=== PATIENT | female | born 1995 | race Hispanic/Latino ===

== ENCOUNTER 2023-05-16 17:22 | Day surgery (SDC) | payer BC, SELFPAY ==
[2023-05-16 18:03] VITALS: BMI 32.3
[2023-05-16] MEDS ORDERED: hydrALAZINE 20 MG/ML VIAL SLOW IVP PRN (19:37)
== END 2023-05-16 19:24 | disposition home or self-care (01) ==
LOC: CSHLD/OP 17:22
PROVIDERS: ATTEND Family Medicine
DX: O47.1 False labor at or after 37 completed weeks of gestation (principal); Z3A.38 38 weeks gestation of pregnancy
CPT/HCPCS: 99283

== ENCOUNTER 2023-05-16 23:49 | Inpatient (IN) | payer BC, SELFPAY ==
[2023-05-17 00:19] VITALS: BMI 32.3
[2023-05-17] MEDS ORDERED: Misoprostol 200 MCG TAB PR PRN (00:38)
[2023-05-17] MEDS ORDERED: Ondansetron PF 4 MG/2 ML Vial IVP PRN ×3 (00:38→17:58)
[2023-05-17] MEDS ORDERED: Methylergonovine 0.2 MG/ML VIAL IM PRN (00:38)
[2023-05-17] MEDS ORDERED: hydrALAZINE 20 MG/ML VIAL SLOW IVP PRN ×2 (00:38→17:58)
[2023-05-17] MEDS ORDERED: Promethazine HCl 25 MG/ML VIAL IM PRN ×3 (00:38→17:58)
[2023-05-17] MEDS ORDERED: Lidocaine 1% (PF) 30 ML VIAL SC PRN (00:38)
[2023-05-17] MEDS ORDERED: Carboprost 250 MCG/ML AMP IM PRN (00:38)
[2023-05-17] MEDS ORDERED: Tranexamic Acid 1,000 MG/10 ML VIAL IVP PRN (00:38)
[2023-05-17] MEDS ORDERED: NS w/ Oxytocin 30 units 500 ML IV SCH ×2 (00:45)
[2023-05-17 01:33] LABS: Hemoglobin 12.1 g/dL (12.0-15.5); Mean Corpuscular HGB CONC 33.4 g/dL (32.0-36.0); Mean Corpuscular Hemoglobin 27.9 pg (27.0-33.0); Mean Corpuscular Volume 83.6 fl (81.6-98.3); Platelet Count 203 10x3/uL (150-450); RBC Distribution Width 22.5 % (11.5-14.5); Red Blood Cell (RBC) Count 4.33 10x6/uL (3.90-5.03); White Blood Cell (WBC) Count 9.1 10x3/uL (3.5-10.5)
[2023-05-17 01:47] LABS: HBSAg Index 0.15 S/CO (0-0.99); Hep B Surf Ag - L&D Non-Reactive S/CO (NonReactive); Syphilis Antibody Nonreactive (Nonreactive); Syphilis Antibody Index 0.03 S/CO (<1.00 Non-Reactive)
[2023-05-17] MEDS ORDERED: fentaNYL/Ropivacaine Epidural 100 ML ONE (09:29)
[2023-05-17] MEDS: Lactated Ringer's 1,000 ML IV SCH ×3 (09:57→18:09)
[2023-05-17] MEDS ORDERED: Moisturizing Cream (Eucerin) 113 GM JAR TOP PRN (10:17)
[2023-05-17] MEDS ORDERED: Naloxone HCl 0.4 mg/ml Vial IVP PRN ×2 (10:17)
[2023-05-17] MEDS ORDERED: Lactated Ringer's 500 ML IV PRN (10:17)
[2023-05-17] MEDS ORDERED: diphenhydrAMINE 50 MG/ML VIAL IVP PRN (10:17)
[2023-05-17] MEDS ORDERED: Acetaminophen 325 MG TAB PO PRN (10:17)
[2023-05-17] MEDS ORDERED: ePHEDrine Sulfate 50 MG/10 ML VIAL SLOW IVP PRN (10:17)
[2023-05-17] MEDS ORDERED: fentaNYL 2 mcg/Ropivacaine 0.2% Epidural 100 ML CADD EPIDURAL SCH (10:30)
[2023-05-17] MEDS ORDERED: Communication Order-Pharmacy FS SCH (10:30)
[2023-05-17] MEDS ORDERED: Ibuprofen 800 MG TAB PO SCH (15:15)
[2023-05-17] MEDS ORDERED: Diphenoxylate HCl/Atropine Tablet PO SCH (16:00)
[2023-05-17] MEDS ORDERED: Bisacodyl 10 MG SUPP PR PRN (17:58)
[2023-05-17] MEDS ORDERED: Boostrix 0.5 ML (Tdap) VIAL (>/=7 yrs of age) IM ONE (17:58)
[2023-05-17] MEDS ORDERED: diphenhydrAMINE 25 MG CAP PO PRN (17:58)
[2023-05-17] MEDS ORDERED: Milk Of Magnesia 30 ML UDCUP PO PRN (17:58)
[2023-05-17] MEDS ORDERED: Lanolin Ointment 7 GM TUBE TOP PRN (17:58)
[2023-05-17] MEDS ORDERED: Ferrous Sulfate 325 MG TAB PO SCH (18:15)
[2023-05-17] MEDS: HYDROcodone/Acetaminophen 5/325 mg Tablet PO PRN (19:15)
[2023-05-17] MEDS: Ibuprofen 800 MG TAB PO SCH (21:19)
[2023-05-17] MEDS: Docusate 100 MG CAP PO SCH (21:20)
[2023-05-17] MEDS: Benzocaine-Menthol 82.5 ML CAN TOP PRN (22:33)
[2023-05-18] MEDS: HYDROcodone/Acetaminophen 5/325 mg Tablet PO PRN ×4 (00:05→21:52)
[2023-05-18] MEDS: Ibuprofen 800 MG TAB PO SCH ×3 (06:26→21:49)
[2023-05-18] MEDS ORDERED: Bupivacaine 0.25% HCL 30 ML VIAL ONE (08:00)
[2023-05-18] MEDS ORDERED: Ferrous Sulfate 325 MG TAB PO SCH (08:00)
[2023-05-18] MEDS: Docusate 100 MG CAP PO SCH ×2 (09:01→21:49)
[2023-05-18] MEDS: Prenatal Vitamin 1 TAB PO SCH (09:01)
[2023-05-18] MEDS: Simethicone Chewable 80 MG TAB PO SCH ×2 (15:34→21:49)
[2023-05-18] MEDS: Benzocaine-Menthol 82.5 ML CAN TOP PRN (18:10)
[2023-05-19] MEDS: Simethicone Chewable 80 MG TAB PO SCH ×2 (03:34→07:47)
[2023-05-19] MEDS: Ibuprofen 800 MG TAB PO SCH (05:37)
[2023-05-19] MEDS: Docusate 100 MG CAP PO SCH (07:47)
[2023-05-19] MEDS: Prenatal Vitamin 1 TAB PO SCH (07:47)
[2023-05-19 08:56] VITALS: BP 119/68; TEMP 98.2
== END 2023-05-19 12:15 | disposition home or self-care (01) | DRG 807 ==
LOC: CSHLD/OP 23:49 → CSHLD 05-17 00:28 → CSHPP 05-17 17:22
PROVIDERS: ADMIT Family Medicine; ATTEND Family Medicine
PROC: 10E0XZZ Delivery of Products of Conception, External Approach (ICD-10-PCS; principal; 2023-05-17)
PROC: 0KQM0ZZ Repair Perineum Muscle, Open Approach (ICD-10-PCS; 2023-05-17)
PROC: 10H07YZ Insertion of Other Device into Products of Conception, Via Natural or Artificial Opening (ICD-10-PCS; 2023-05-17)
PROC: 0UQMXZZ Repair Vulva, External Approach (ICD-10-PCS; 2023-05-17)
DX: O70.1 Second degree perineal laceration during delivery (principal); Z37.0 Single live birth; O71.82 Other specified trauma to perineum and vulva; Z3A.38 38 weeks gestation of pregnancy
CPT/HCPCS: 36415; 51702; 85027; 86780; 86850; 86900; 86901; 87340; 99283; 99285; J2590; J3490; J7120; S0020